=== PATIENT | female | born 1960 | race Caucasian/White ===

== ENCOUNTER 2021-06-27 03:55 | Emergency (ER) | payer OTHER ==
[~2021-06-27] VITALS: Ht 165.1 cm; Wt 58.1 kg
[2021-06-27 04:06] VITALS: BP 124/68
--- NOTE | 2021-06-27 04:09 | NUR ---
LEFT FLANK PAIN X24HRS WITH UTI SYMPTOMS- "I FEEL LIKE MY BLADDER IS PROLAPSING AT THE END OF URINATION". DENIES HX, RX AND ALLERGIES
[2021-06-27] MEDS ORDERED: CEPH-588 PO (04:30)
[2021-06-27] MEDS ORDERED: cephALEXin 500 MG CAP PO ONE (04:30)
[2021-06-27] MEDS ORDERED: CYCL-711 PO (04:30)
[2021-06-27 04:45] VITALS: BP 124/68
--- NOTE | 2021-06-27 04:45 | NUR ---
Patient discharged with v/s stable. Written and verbal after care instructions given and explained. Patient alert, oriented and verbalized understanding of instructions. Ambulatory with steady gait. All questions addressed prior to discharge. ID band removed. Patient advised to follow up with PMD. Rx of KEFLEX AND FLEXERIL given. Patient educated on indication of medication including possible reaction and side effects. Opportunity to ask questions provided and answered.
--- NOTE | 2021-06-27 04:50 | NUR ---
URINE COLLECTED AND TAKEN TO LAB.
[2021-06-27 05:39] LABS: APPEARANCE,URINE CLEAR (CLEAR); BILIRUBIN,URINE NEGATIVE (NEGATIVE); BLOOD, URINE TRACE-I (NEGATIVE); COLOR,URINE YELLOW (YELLOW); LEUKOCYTE ESTERASE ,URINE NEGATIVE (NEGATIVE); NITRITE, URINE NEGATIVE (NEGATIVE); PH,URINE 6.5 (5.0-9.0); UGLUCOSE NEGATIVE (NEGATIVE)
[2021-06-27 05:42] LABS: RBC,URINE 0-5 /HPF (0-5); WBC,URINE 20-60 /HPF (0-5)
== END 2021-06-27 04:45 | disposition home or self-care (01) ==
LOC: MED 03:55
DX: N39.0 Urinary tract infection, site not specified (principal); R10.9 Unspecified abdominal pain; R35.0 Frequency of micturition; Z90.49 Acquired absence of other specified parts of digestive tract; Z79.899 Other long term (current) drug therapy
CPT/HCPCS: 81001; 87086; 99283

== ENCOUNTER 2023-10-12 19:46 | Emergency (ER) | payer OTHER ==
[~2023-10-12] VITALS: Ht 165.1 cm; Wt 57.2 kg
[~2023-10-12 19:46] MED LIST: CEPH-588 PO; CYCL-711 PO
[2023-10-12 20:05] VITALS: BP 142/72; PULSE 78; RESP 16; TEMP 98.1; O2SAT 98
[2023-10-12] MEDS: NACL 0.9% 1,000 ML IV ONE (21:10)
[2023-10-12 21:11] LABS: BASOPHILS % (AUTO) 0.5 % (0.0-2.0); EOSINOPHILS # (AUTO) 0.1 K/uL (0-0.4); EOSINOPHILS % (AUTO) 0.9 % (0.0-4.0); HEMATOCRIT 39.7 % (36-48); HEMOGLOBIN 14.4 g/dL (12.0-16.0); LYMPHOCYTES # (AUTO) 1.9 K/uL (2.5-16.5); LYMPHOCYTES % (AUTO) 32.2 % (20.5-51.1); MEAN CORPUSCULAR HEMOGLOBIN 36 pg (27-31); MEAN CORPUSCULAR HGB CONC 36 g/dL (33-37); MEAN CORPUSCULAR VOLUME 99.1 fL (80-94); MONOCYTES # (AUTO) 0.5 K/uL (0.8-1.0); MONOCYTES % (AUTO) 9.3 % (1.7-9.3); NEUTROPHILS # (AUTO) 3.4 K/uL (1.8-7.7); NEUTROPHILS % (AUTO) 57.1 % (42.2-75.2); PLATELET COUNT (AUTO) 248 K/uL (140-450); RED CELL DISTRIBUTION WIDTH 14.4 % (11.6-13.7); WHITE BLOOD COUNT (AUTO) 5.9 K/uL (4.8-10.8)
[2023-10-12] MEDS: ALBUTEROL SULFATE/IPRATROPIU 3 ML SOL IH ONE (21:13)
[2023-10-12] MEDS: cephALEXin 500 MG CAP PO ONE (21:14)
[2023-10-12 21:31] VITALS: PULSE 73; RESP 19; O2SAT 100
[2023-10-12 21:33] LABS: ALANINE AMINOTRANSFERASE 15 U/L (12-78); ALBUMIN 3.7 g/dL (3.4-5.0); ALKALINE PHOSPHATASE 108 U/L (50-136); ANION GAP 12.8 (8-16); ASPARTATE AMINOTRANSFERASE 17 U/L (15-37); CALCIUM 8.8 mg/dL (8.5-10.1); CHLORIDE 103 mmol/L (98-107); CREATININE 0.8 mg/dL (0.6-1.3); GFR ARICAN-AMERICAN 93 mL/min (>90); GFR NON ARICAN-AMERICAN 77 mL/min (>90); GLUCOSE 90 mg/dL (74-106); POTASSIUM 3.8 mmol/L (3.5-5.1); SODIUM SERUM 138 mmol/L (136-145); TOTAL BILIRUBIN 0.4 mg/dL (0.0-1.0); TOTAL PROTEIN, SERUM 7.5 g/dL (6.4-8.2); UREA NITROGEN, BLOOD 13 mg/dL (7-18)
[2023-10-12 21:37] LABS: FLU A ANTIGEN negative (NEGATIVE); FLU B ANTIGEN NEGATIVE (NEGATIVE)
[2023-10-12] MEDS: predniSONE 20 MG TAB PO ONE (22:09)
[2023-10-12] MEDS ORDERED: PROM118S5 PO (22:16)
[2023-10-12] MEDS ORDERED: AZIT250T4 PO (22:16)
[2023-10-12] MEDS ORDERED: BENZ200C4 PO (22:16)
[2023-10-12] MEDS ORDERED: ALBU0.0912 INH (22:16)
[2023-10-12 22:25] VITALS: BP 138/62; PULSE 68; RESP 16; TEMP 98.1; O2SAT 98
== END 2023-10-12 22:25 | disposition home or self-care (01) ==
LOC: MED 19:46
DX: J98.8 Other specified respiratory disorders (principal); Z20.822 Contact with and (suspected) exposure to COVID-19; M79.672 Pain in left foot; F17.200 Nicotine dependence, unspecified, uncomplicated; J44.9 Chronic obstructive pulmonary disease, unspecified; Z79.899 Other long term (current) drug therapy
CPT/HCPCS: 36415; 71046; 73630; 80053; 81002; 84484; 85025; 85379; 87426; 87804; 93005; 94640; 96360; 99285; J7030; J7512